=== PATIENT | male | born 1960 | race Caucasian/White ===

== ENCOUNTER 2017-04-12 13:13 | Emergency (ER) | payer OTHER ==
[~2017-04-12] VITALS: Ht 170.2 cm; Wt 91.0 kg
[2017-04-12 13:25] VITALS: BP 133/72; PULSE 92; RESP 16; TEMP 98.6; O2SAT 99
--- NOTE | 2017-04-12 14:24 | PD ---
HPI Chief Complaint: Laceration/Skin Injury Time Seen by Provider: 13:55 Travel History International Travel<30 days: No Contact w/Intl Traveler<30days: No Traveled to known affect area: No History of Present Illness HPI 56-year-old male presents to the emergency room for evaluation of laceration to the left anterior leg that occurred just prior to arrival. Patient was using a machete overhead to cut branches when he slipped and machete filleted his left leg. He denies significant pain. He has been able to ambulate since injuring it. Denies paresthesias. He wrapped his sock around it, took 600 mg ibuprofen , and then came straight to the emergency room. Last tetanus was 2 years ago. Patient denies chronic medical conditions or daily medications. PFS Past Medical History Medical History: Denies Significant Hx Diminished Hearing: No Tetanus Vaccination: < 5 Years Influenza Vaccination: Yes Past Surgical History Abdominal Surgery: Yes ( BILAT GROIN HERNIA 2002) Tympanostomy Tube: Yes (CHILDHOOD) Other Surgery: Yes (VASECTOMY 2001) Social History Alcohol Use: No Tobacco Use: No Substance Use: No Allergies-Medications (Allergen,Severity, Reaction): Coded Allergies: codeine (Unverified Allergy, Mild, HEADACHE, 04/12/17) Reported Meds & Prescriptions Reported Meds & Active Scripts Active No Active Prescriptions or Reported Medications Review of Systems Except as stated in HPI: all other systems reviewed are Neg Physical Exam Narrative GENERAL: Well-nourished, well-developed male in no acute distress. Afebrile. Ambulatory. SKIN: Focused skin assessment warm/dry. There is a 6 cm well approximated superficial laceration to the left anterior lower leg. Nonbleeding. HEAD: Normocephalic. EYES: No scleral icterus. No injection or drainage. NECK: Supple, trachea midline. No JVD or lymphadenopathy. CARDIOVASCULAR: Regular rate and rhythm without murmurs, gallops, or rubs. RESPIRATORY: Breath sounds equal bilaterally. No accessory muscle use. MUSCULOSKELETAL: No cyanosis, or edema. 2+ dorsalis pedis pulse. Full range of motion of left lower extremity. Data Data Last Documented VS Vital Signs Date Time Temp Pulse Resp B/P (MAP) Pulse Ox O2 Delivery O2 Flow Rate FiO2 04/12/17 13:25 98.6 92 16 133/72 (92) 99 Orders Orders Lidocaine 1% Inj (50 Ml) (Xylocaine 1% I (04/12/17 14:30) MDM Medical Decision Making Medical Screen Exam Complete: Yes Emergency Medical Condition: Yes Medical Record Reviewed: Yes Differential Diagnosis Laceration, abrasion, contusion, avulsion Narrative Course 56-year-old male presents to the emergency room for evaluation of laceration to his left lower leg that occurred just prior to arrival. Patient accidentally cut himself with a machete. Left lower extremity is neurovascularly intact with 2+ dorsalis pedis pulse. There is full range of motion. No significant edema or pain. There is a 6 cm well approximated laceration to the proximal lower leg. It is nonbleeding. Laceration was thoroughly cleansed and then repaired, see procedure for details. Patient discharged with wound care instructions and told to follow-up with a primary care physician or return for worsening symptoms. He understands and agrees to plan. Procedures Procedure Narrative LACERATION LOCATION: Left anterior lower leg LENGTH: 6 cm NUMBER OF STITCHES/EDITH: 6 interrupted REPAIR: The area of the laceration was prepped with Betadine and sterilely draped. The laceration was infiltrated with 1% lidocaine. The wound was copiously irrigated and explored without evidence of foreign body, tendon injury or neurovascular injury. The wound was closed using 5-0 Prolene. This was a single layer repair. A sterile dressing was applied. The patient was advised to keep the dressing clean and dry. Patient tolerated the procedure well. Diagnosis Primary Impression: Laceration of left leg Qualified Codes: S81.812A - Laceration without foreign body, left lower leg, initial encounter Referrals: Primary Care Physician Additional Instructions: Rest and drink plenty of fluids. Keep wound clean and dry. Apply triple antibiotic ointment daily. Sutures out in 14 days. Take ibuprofen with food as directed, as needed for pain. Apply ice to the affected area for 20 minutes at a time, as needed for pain and swelling. Follow-up with a primary care physician. Return to the emergency room for worsening symptoms. Med/Other Pt SpecificInfo: Prescription(s) given Scripts No Active Prescriptions or Reported Meds Disposition: 01 DISCHARGE HOME Condition: Stable Kaci Powell Apr 12, 2017 14:24
[2017-04-12] MEDS ORDERED: LIDOCAINE HCL 1% 50 ML VIAL INFIL ONE (14:30)
== END 2017-04-12 15:23 | disposition home or self-care (01) ==
LOC: PHEFT 13:13
DX: S81.812A Laceration without foreign body, left lower leg, initial encounter (principal); W26.0XXA Contact with knife, initial encounter; Y93.H2 Activity, gardening and landscaping
CPT/HCPCS: 12002